=== PATIENT | female | born 2000 | race Caucasian/White ===

== ENCOUNTER 2021-11-27 05:09 | Emergency (ER) | payer OTHER, MEDICAID, SELFPAY ==
[2021-11-27 05:21] VITALS: BP 119/73; PULSE 92; RESP 18; TEMP 36.3; O2SAT 98; BMI 20.7
--- NOTE | 2021-11-27 05:28 | ED_ITS ---
HPI - Anxiety General Chief Complaint: Anxiety Stated Complaint: prednisone/cold medicine allergic reaction Time Seen by Provider: 11/27/21 05:25 Source: patient Mode of arrival: Ambulatory Limitations: no limitations History of Present Illness HPI narrative: Patient is a 21-year-old female. Was recently started on prednisone for an upper respiratory infection. She is been on this for the past couple days. Thi s past evening she also took some TheraFlu to try to help her symptoms. She also had some alcoholic beverages. She then started to have shaking and anxiety and panic attack had nausea like symptoms. She does have a history of anxiety. Has not tried anything for the symptoms prior to arrival. Related Data Allergies Allergy/AdvReac Type Severity Reaction Status Date / Time No Known Drug Allergies Allergy Verified 11/27/21 05:32 Review of Systems Constitutional Constitutional: Reports system reviewed and no additional complaints, except as documented ENT Ears, Nose, Mouth, and Throat: Reports system reviewed and no additional complaints, except as documented Respiratory Respiratory: Reports system reviewed and no additional complaints, except as documented Integumentary/Breasts Skin/Breast: Reports system reviewed and no additional complaints, except as documented Psychiatric Psychiatric: Reports system reviewed and no additional complaints, except as documented Patient History Medical History Anxiety Social History Smoking Status: Never smoker Smoking Status: Never smoker alcohol intake frequency: a few times a month Alcohol type: beer Substance Use Type: marijuana Exam Initial Vital Signs Initial Vital Signs: Vital Signs Temperature 97.4 F L 11/27/21 05:21 Pulse Rate 92 H 11/27/21 05:21 Respiratory Rate 18 11/27/21 05:21 Blood Pressure 119/73 11/27/21 05:21 Pulse Oximetry 98 11/27/21 05:21 Oxygen Delivery Method 11/27/21 05:21 Const General: cooperative and comfortable HENMT Head: normal to inspection Resp Effort & Inspection: normal respiratory effort Cardio Rate: regular rate GI Inspection: normal to inspection Skin General: no rashes or lesions noted Neuro General: patient alert, patient awake and moves all extremities Extrem General: normal to inspection and capillary refill normal Psych Other: Anxious Course Orders Ordered: Discontinued Medications Lorazepam (Lorazepam 0.5 Mg Tablet) 1 mg PO NOW ONE Stop: 11/27/21 05:29 Last Admin: 11/27/21 05:32 Dose: 1 mg Documented By: SENTHIL Vital Signs Vital signs: Vital Signs - 8 hr 11/27/21 05:21 11/27/21 06:11 Temperature 97.4 F L Pulse Rate 92 H 70 Respiratory Rate 18 18 Blood Pressure 119/73 Pulse Oximetry 98 98 Oxygen Delivery Method Room Air Room Air MDM - Anxiety MDM Narrative Medical decision making narrative: After the Ativan the patient stated that she felt much better. She is been on steroids for the past 3 days and states she does not feel much improvement with them. Steroids can certainly cause her to be anxious. Will have her stop taking the steroids. She was given return precautions and follow-up instructions. She expressed understanding and agreement. Discharge Plan Departure Patient Disposition: Home Clinical Impression: Acute anxiety Instructions: DI for Anxiety -- Adult Activity Restrictions/Additional Instructions: I recommend that you continue to take all of your medications as directed although I do recommend that you stop the prednisone as it could very well be adding to the anxiety issues. Contact your primary doctor for follow-up. Return to the emergency department for any new or worsening symptoms. Referrals: Allie Browning MD [Primary Care Provider] -
[2021-11-27] MEDS: LORazepam 0.5 MG TABLET 1 MG PO (05:32)
[2021-11-27 06:11] VITALS: PULSE 70; RESP 18; O2SAT 98
[2021-11-27 06:33] VITALS: PULSE 87; RESP 18; O2SAT 98
== END 2021-11-27 06:37 | disposition home or self-care (01) ==
PROVIDERS: Emergency Provider Emergency Medicine; PCP Family Medicine
DX: F19.980 Other psychoactive substance use, unspecified with psychoactive substance-induced anxiety disorder (principal)
CPT/HCPCS: 99283